=== PATIENT | female | born 1985 | race Caucasian/White ===

== ENCOUNTER → 2022-05-18 13:00 | Outpatient (BNVA) | payer MEDICAID, SELFPAY | PROVIDERS: PCP Family Medicine; Visit Provider Obstetrics & Gynecology | DX: R87.610 Atypical squamous cells of undetermined significance on cytologic smear of cervix (ASC-US) (principal); Z01.818 Encounter for other preprocedural examination; R87.810 Cervical high risk human papillomavirus (HPV) DNA test positive | CPT/HCPCS: 81025; 88305 ==

== ENCOUNTER 2023-06-13 08:06 | Day surgery (SDC) | payer MEDICAID, SELFPAY ==
[2023-06-13] VITALS (9 sets, daily range): BP systolic 147–186; BP diastolic 105–140; PULSE 79–113; RESP 17–18; TEMP 36.1–36.7; O2SAT 95–100; BMI 31.7
--- NOTE | 2023-06-13 01:32 | W.PM.OPSFHP ---
Same Day Surgery H&P Indication for Procedure/HPI DATE OF PROCEDURE: June 13, 2023 CHIEF COMPLAINT/INDICATIONFOR SURGICAL PROCEDURE: cervical dysplasia PREOP DIAGNOSIS: cervical dysplasia PLANNED PROCEDURE: Operation Date: 06/13/23 10:15 Proposed Procedures p Cervical Conization(Not Applicable) - Arpit Carpio MD 37 y.o. G0 h/o LEEP cervical excision, showed STEFFANY II had repeat pap c/w HGSIL now scheduled for conization of cervix Medications/Allergies* Home Medications Medication Instructions Recorded Confirmed Type medroxyprogesterone 150 mg/mL mg IM 05/18/22 05/06/23 History intramuscular suspension (Depo-Provera) Allergies/Adverse Reactions Allergy/AdvReac Type Severity Reaction Status Date / Time No Known Allergies Allergy Verified 05/06/23 14:16 Pertinent History/Comorbid Conditions* Medical History (Updated 05/20/23 @ 11:53 by Arpit Carpio MD) ASCUS with positive high risk HPV cervical Psychiatric care No pertinent past medical history History of broken leg Surgical History (Updated 02/25/21 @ 21:26 by Holly Otoole MD) History of loop electrical excision procedure (LEEP) History of wisdom tooth extraction Family History (Updated 02/23/21 @ 08:26 by Suzanne Casas LPN) Diabetes Father type 2--managed with metformin Breast cancer Grandmother Maternal Cancer Family/Other Maternal Aunt--bladder Hypertension Mother Denies family history of CAD (coronary artery disease) Clotting disorder Hyperlipidemia Chronic kidney disease (CKD) Bleeding disorder Thyroid disease Stroke Pertinent Exam Findings alert, oriented x 3, clear to auscultation bilaterally and regular rate & rhythm Recommendations Surgery/Procedure today Coding Level of Care Code Acute Code for Chg Fwd Time Spent (min) 20
[2023-06-13 08:37] LABS: OR HCG Qualitative Urine Negative (Negative)
[2023-06-13] MEDS: sodium chloride 0.9% 1,000 ML 30 ML IV (08:40)
--- NOTE | 2023-06-13 09:01 | ANES.PREANE2 ---
Pre-Anesthetic Assessment Height/Weight: Height 1.65 m Weight 86.581 kg Temp Pulse Resp BP Pulse Ox O2 Del Method 98.0 F 100 17 181/113 97 Room Air 06/13/23 08:22 06/13/23 08:22 06/13/23 08:22 06/13/23 08:22 06/13/23 08:22 06/13/23 08:28 Preop Diagnosis: cervical dysplasia Operation Date: 06/13/23 10:15 Proposed Procedures p Cervical Conization(Not Applicable) - Arpit Carpio MD Familial anesthetic complications: None Was Beta Karie taken within 24 hours: N/A Was Clonidine taken within 24 hours: N/A Last intake: Intake Last Liquid Date 06/12/23 Last Liquid Time 23:30 Last Solid Date 06/12/23 Last Solid Time 21:00 Social Tobacco and No alcohol Exam alert, oriented x 3, clear to auscultation bilaterally and regular rate & rhythm Airway Mallampati: Class II Dentition: full Anesthetic Plan ASA status: 1 Anesthesia: General Risk of > 500 ml blood loss (7ml/kg in children): No Medications/Allergies Home Medications Medication Instructions Recorded Confirmed Last Taken Type medroxyprogesterone 150 mg/mL 150 mg IM DIRECTED 05/18/22 06/13/23 06/07/23 History intramuscular suspension (Depo-Provera) Allergies Allergy/AdvReac Type Severity Reaction Status Date / Time No Known Allergies Allergy Verified 06/13/23 08:37 Current Medications Generic Name Dose Route Start Last Admin Trade Name Freq PRN Reason Stop Dose Admin Sodium Chloride 1,000 mls @ 30 mls/hr 06/13/23 08:15 06/13/23 08:40 Sodium Chloride 0.9% IV 06/14/23 08:14 30 mls/hr .Q24H DALE Administration PFSH Anesthesia Medical History ASCUS with positive high risk HPV cervical Psychiatric care No pertinent past medical history History of broken leg Surgical History History of loop electrical excision procedure (LEEP) History of wisdom tooth extraction Family History Grandmother Breast cancer Maternal Family/Other Cancer Maternal Aunt--bladder Father Diabetes type 2--managed with metformin Mother Hypertension Denies family history of CAD (coronary artery disease) Clotting disorder Hyperlipidemia Chronic kidney disease (CKD) Bleeding disorder Thyroid disease Stroke Data Anesthesia Cardiac Studies: No Data to Display
--- NOTE | 2023-06-13 09:01 | W.PM.OPSUD ---
Surgery/Procedure H&P Update DATE OF PROCEDURE: June 13, 2023 DATE H&P PERFORMED: 06/12/23 H&P UPDATE INFORMATION: I have reviewed H&P completed within last 30 days, I have examined patient prior to procedure and No changes to prior documentation PREOP DIAGNOSIS: cervical dysplasia PLANNED PROCEDURE: Operation Date: 06/13/23 10:15 Proposed Procedures p Cervical Conization(Not Applicable) - Arpit Carpio MD
[2023-06-13] MEDS: vasopressin 20 unit/mL INJ 10 UNIT INJECTION (09:54)
[2023-06-13] MEDS: metoprolol tartrate 1 mg/1 mL SDV 5 mL 3 MG IVP (10:35)
--- NOTE | 2023-06-13 10:45 | ANE.PACU2 ---
Inpatient post-anesthesia follow up: Airway intact: Yes Vital signs: Temperature 97.7 F Pulse Rate 86 Respiratory Rate 17 Blood Pressure 156/111 Pulse Oximetry 98 Oxygen Delivery Me thod Room Air Oxygen Flow Rate Fraction of Inspir ed Oxygen Hydration adequate: Yes Nausea and vomiting: No Pain level: 1 Mental status: Baseline
--- NOTE | 2023-06-13 11:05 | PM.OP ---
Operative Report Date of procedure: June 13, 2023 Pre-op diagnosis: cervical dysplasia Post-op diagnosis: same Procedure done: cold-knife conization of cervix Implants: none Specimens removed/disposition: cone of cervix Surgeon: Arpit Carpio MD Anesthesia: General Estimated blood loss (mL): 5 Complications: none Condition: stable Disposition: PACU Brief History: 37 y.o. G0 h/o LEEP cervical excision in December 2018 which showed STEFFANY II repeat Pap done April 2023 showed HGSIL now scheduled for cold-knife conization of cervix Procedure: Informed consent signed The patient was taken to the operating room and placed supine on the table. MAC anesthesia was induced. The patient was placed in dorsolithotomy position. The patient was prepped and draped in the usual sterile fashion. A bivalve speculum was placed in the vagina. The anterior lip of the cervix was grasped with a single toothed tenaculum. The cervix was then infiltrated at the cervicovaginal junction with 10 cc of 10 U of vasopressin diluted in 10 cc of NS to decrease bleeding. The cold-knife conization was then performed with a scalpel, to a depth of approximately 1 cm. No bleeding was seen. Monsel?s solution was applied. Excellent hemostasis was again noted. All instruments were then removed. The patient was placed supine, awakened, and taken to the recovery room. Postoperative condition: stable EBL: 5 cc Complications: none Sponge and instrument counts were correct x two
== END 2023-06-13 11:47 | disposition home or self-care (01) ==
PROVIDERS: Anesthesiology; PCP Family Medicine; Visit Provider Obstetrics & Gynecology
PROC: 0UBC7ZZ Excision of Cervix, Via Natural or Artificial Opening (ICD-10-PCS; CPT 57520; principal; 2023-06-13 10:05)
DX: N87.1 Moderate cervical dysplasia (principal)
CPT/HCPCS: 57520; 81025; 84703; 88307; J1100; J1885; J2250; J2405; J2704; J3010; J3490; J7030

== ENCOUNTER → 2023-10-21 13:58 | Outpatient (BNVA) | payer MEDICAID, SELFPAY | PROVIDERS: PCP Family Medicine; Visit Provider Obstetrics & Gynecology | DX: Z01.419 Encounter for gynecological examination (general) (routine) without abnormal findings (principal); D06.9 Carcinoma in situ of cervix, unspecified | CPT/HCPCS: 87624 ==

== ENCOUNTER → 2023-12-13 15:40 | Outpatient (BNVA) | payer MEDICAID, SELFPAY | PROVIDERS: PCP Family Medicine; Visit Provider Nurse Practitioner | DX: S82.831A Other fracture of upper and lower end of right fibula, initial encounter for closed fracture (principal); S93.04XA Dislocation of right ankle joint, initial encounter; X58.XXXA Exposure to other specified factors, initial encounter | CPT/HCPCS: 73610 ==

== ENCOUNTER → 2023-12-17 14:59 | Outpatient (BNVA) | payer MEDICAID, SELFPAY | PROVIDERS: PCP Family Medicine; Visit Provider Podiatrist Foot & Ankle Surgery | DX: M25.571 Pain in right ankle and joints of right foot (principal); S82.401A Unspecified fracture of shaft of right fibula, initial encounter for closed fracture; S82.841A Displaced bimalleolar fracture of right lower leg, initial encounter for closed fracture; X58.XXXA Exposure to other specified factors, initial encounter | CPT/HCPCS: 73610 ==